=== PATIENT | female | born 1950 | race Caucasian/White ===

== ENCOUNTER 2018-01-18 15:24 | Inpatient (IN) | payer MEDICARE ==
[2018-01-18] MEDS ORDERED: ACETAMINOPHEN 325 MG TAB PO (17:00)
[2018-01-18] MEDS ORDERED: NACL 0.9% 3 ML SYG IV (17:00)
[2018-01-18] MEDS ORDERED: VANCOMYCIN IV PER PHARMACY XX (17:00)
[2018-01-18] MEDS ORDERED: ONDANSETRON 4 MG INJ IV ×2 (17:00)
[2018-01-18 17:03] LABS: ADD MAN DIFF? NO
[2018-01-18] MEDS: PIPER-TAZO 3.375 GM IV (PMX) 100 ML IVPB (17:05)
[2018-01-18] MEDS: ONDANSETRON 4 MG INJ IV (17:05)
[2018-01-18] MEDS: morphine 4 MG/ML VIAL IV (17:05)
[2018-01-18 17:06] LABS: BASOPHILS % 0.2 % (0.0-2.0); EOSINOPHILS % 0.1 % (0.0-7.0); HEMATOCRIT 39.8 % (37.0-47.0); HEMOGLOBIN 13.4 g/dl (12.0-16.0); LYMPHOCYTES # 0.8 10^3/ul (0.8-2.9); LYMPHOCYTES % 5.4 % (15.0-51.0); MEAN CORPUSCULAR HEMOGLOBIN 31.5 pg (29.0-33.0); MEAN CORPUSCULAR HGB CONC 33.7 g/dl (32.0-37.0); MEAN CORPUSCULAR VOLUME 93.4 fl (82.0-101.0); MEAN PLATELET VOLUME 12.1 fl (7.4-10.4); MONOCYTE # 0.7 10^3/ul (0.3-0.9); MONOCYTES % 4.6 % (0.0-11.0); NEUTROPHIL # 12.9 10^3/ul (1.6-7.5); NEUTROPHILS % 89.4 % (39.0-77.0); PLATELET COUNT 183 10^3/UL (140-415); RED BLOOD COUNT 4.26 10^6/ul (4.20-5.40); RED CELL DISTRIBUTION WIDTH 14.3 % (11.5-14.5)
[2018-01-18 17:06] LABS: WHITE BLOOD COUNT 14.4 10^3/ul (4.8-10.8)
[2018-01-18 17:17] LABS: INR 1.01; PROTIME 13.4 Sec (11.9-14.9)
[2018-01-18 17:26] LABS: ALANINE AMINOTRANSFERASE 19 IU/L (13-69); ALBUMIN/GLOBULIN RATIO 1.14; ALKALINE PHOSPHATASE 123 IU/L (42-121); ANION GAP 15 (8-16); ASPARTATE AMINO TRANSFERASE 20 IU/L (15-46); BILIRUBIN,INDIRECT 0.5 mg/dl (0-1.1); BILIRUBIN,TOTAL 0.5 mg/dl (0.2-1.3); BLOOD UREA NITROGEN 19 mg/dl (7-20); CALCIUM 9.2 mg/dl (8.4-10.2); CARBON DIOXIDE 28 mmol/L (21-31); CHLORIDE 106 mmol/L (97-110); CREATININE 0.92 mg/dl (0.44-1.00); GLUCOSE 102 mg/dl (70-220); POTASSIUM 4.9 mmol/L (3.5-5.1); SODIUM 144 mmol/L (135-144); TOTAL PROTEIN 7.5 g/dl (6.1-8.1)
[2018-01-18 17:27] LABS: LACTIC ACID 1.7 mmol/L (0.5-2.0)
[2018-01-18 17:43] LABS: TROPONIN-I < 0.012 ng/ml (0.00-0.12)
[2018-01-18] MEDS: VANCOMYCIN 1 GM (PMX) 250 ML IVPB (18:11)
[2018-01-18 19:16] LABS: ADD UMIC YES; UR ASCORBIC ACID 40 mg/dL (NEGATIVE); UR BACTERIA FEW /HPF (NONE SEEN); UR BILIRUBIN (Dip) NEGATIVE (NEGATIVE); UR BLOOD (Dip) NEGATIVE (NEGATIVE); UR CLARITY SLIGHTLY CLOUDY (CLEAR); UR COLOR YELLOW (YELLOW); UR GLUCOSE (Dip) NEGATIVE (NEGATIVE); UR KETONES (Dip) NEGATIVE (NEGATIVE); UR LEUKOCYTE ESTERASE (Dip) 3+ Leu/ul (NEGATIVE); UR NITRITE (Dip) POSITIVE (NEGATIVE); UR NONSQUAMOUS EPITHELIAL CELL 3 /HPF (NONE SEEN); UR RBC 11 /HPF (0-5); UR SPECIFIC GRAVITY (Dip) 1.016 (1.003-1.030); UR SQUAMOUS EPITHELIAL CELL FEW /HPF (FEW); UR TOTAL PROTEIN (Dip) NEGATIVE (NEGATIVE); UR UROBILINOGEN (Dip) NEGATIVE (NEGATIVE); UR WBC 48 /HPF (0-5)
[2018-01-18 19:45] LABS: LACTIC ACID 1.4 mmol/L (0.5-2.0)
[2018-01-18] MEDS: HYDROCODONE/APAP (5/325) TAB PO (19:48)
[2018-01-18] MEDS: BACLOFEN 10 MG TAB PO (19:48)
[2018-01-18] MEDS: morphine 2 MG INJ IV (20:58)
[2018-01-18] MEDS: BUPROPION (SR) 150 MG TAB PO (21:00)
[2018-01-18] MEDS: DIAZEPAM 5 MG TAB PO (21:00)
[2018-01-18 21:28] LABS: LACTIC ACID 1.1 mmol/L (0.5-2.0)
[2018-01-18] MEDS: VANCOMYCIN 750 MG in DEXTROSE 5% 150 ML IVPB (22:10)
[2018-01-18] MEDS: SERTRALINE 100 MG TAB PO (22:10)
[2018-01-18] MEDS: ATORVASTATIN 80 MG TAB PO (22:11)
[2018-01-19] MEDS: VANCOMYCIN 750 MG in DEXTROSE 5% 150 ML IVPB ×2 (06:18→17:30)
[2018-01-19 06:42] LABS: ADD MAN DIFF? NO
[2018-01-19] MEDS: OXYBUTYNIN 5 MG TAB PO (08:42)
[2018-01-19] MEDS: ASPIRIN 81 MG TAB PO (08:42)
[2018-01-19] MEDS: CHOLECALCIFEROL 1,000 UNIT TAB PO (08:42)
[2018-01-19] MEDS: FOLIC ACID 1 MG TAB PO (08:42)
[2018-01-19] MEDS: VITAMIN B COMPLEX/VIT C CAP PO (08:42)
[2018-01-19] MEDS: RANITIDINE 150 MG TAB PO (08:42)
[2018-01-19] MEDS: SERTRALINE 100 MG TAB PO ×2 (08:42→20:57)
[2018-01-19] MEDS: ACETAMINOPHEN 325 MG TAB PO (08:43)
[2018-01-19] MEDS: ENOXAPARIN 40 MG/0.4 ML SYG SC (09:00)
[2018-01-19] MEDS: METOPROLOL (XL) 100 MG TAB PO (09:00)
[2018-01-19 09:54] LABS: ABNORMAL IP MESSAGE 1; BASOPHILS % 0.3 % (0.0-2.0); HEMATOCRIT 37.3 % (37.0-47.0); HEMOGLOBIN 12.1 g/dl (12.0-16.0); LYMPHOCYTES # 0.6 10^3/ul (0.8-2.9); LYMPHOCYTES % 8.4 % (15.0-51.0); MEAN CORPUSCULAR HEMOGLOBIN 31.7 pg (29.0-33.0); MEAN CORPUSCULAR HGB CONC 32.4 g/dl (32.0-37.0); MEAN CORPUSCULAR VOLUME 97.6 fl (82.0-101.0); MEAN PLATELET VOLUME 12.7 fl (7.4-10.4); MONOCYTE # 0.4 10^3/ul (0.3-0.9); MONOCYTES % 5.6 % (0.0-11.0); NEUTROPHIL # 5.9 10^3/ul (1.6-7.5); NEUTROPHILS % 85.1 % (39.0-77.0); PLATELET COUNT 146 10^3/UL (140-415); RED BLOOD COUNT 3.82 10^6/ul (4.20-5.40); RED CELL DISTRIBUTION WIDTH 14.5 % (11.5-14.5)
[2018-01-19 09:54] LABS: WHITE BLOOD COUNT 6.9 10^3/ul (4.8-10.8)
[2018-01-19 09:56] LABS: POSITIVE DIFF @See below
[2018-01-19] MEDS: CEFEPIME 1GM/50 ML (PMX) 50 ML IVPB ×2 (11:51→22:03)
[2018-01-19] MEDS: OXYMETAZOLINE 0.05% 15 ML NAS SPRAY NASAL (18:26)
[2018-01-19] MEDS: ATORVASTATIN 80 MG TAB PO (20:57)
[2018-01-19] MEDS: DIAZEPAM 5 MG TAB PO (20:57)
[2018-01-19] MEDS: BUPROPION (SR) 150 MG TAB PO (20:57)
[2018-01-20 05:34] LABS: ADD MAN DIFF? NO
[2018-01-20 05:37] LABS: BASOPHILS % 0.3 % (0.0-2.0); HEMATOCRIT 31.5 % (37.0-47.0); HEMOGLOBIN 10.4 g/dl (12.0-16.0); LYMPHOCYTES # 0.9 10^3/ul (0.8-2.9); LYMPHOCYTES % 24.2 % (15.0-51.0); MEAN PLATELET VOLUME 11.5 fl (7.4-10.4); MONOCYTE # 0.4 10^3/ul (0.3-0.9); MONOCYTES % 11.8 % (0.0-11.0); NEUTROPHIL # 2.3 10^3/ul (1.6-7.5); NEUTROPHILS % 63.4 % (39.0-77.0); PLATELET COUNT 136 10^3/UL (140-415); RED BLOOD COUNT 3.35 10^6/ul (4.20-5.40); RED CELL DISTRIBUTION WIDTH 13.8 % (11.5-14.5)
[2018-01-20 05:37] LABS: WHITE BLOOD COUNT 3.6 10^3/ul (4.8-10.8)
[2018-01-20 05:59] LABS: BLOOD UREA NITROGEN 13 mg/dl (7-20)
[2018-01-20 05:59] LABS: CREATININE 0.82 mg/dl (0.44-1.00)
[2018-01-20] MEDS: OXYBUTYNIN 5 MG TAB PO (08:23)
[2018-01-20] MEDS: RANITIDINE 150 MG TAB PO (08:23)
[2018-01-20] MEDS: FOLIC ACID 1 MG TAB PO (08:24)
[2018-01-20] MEDS: ASPIRIN 81 MG TAB PO (08:24)
[2018-01-20] MEDS: VITAMIN B COMPLEX/VIT C CAP PO (08:24)
[2018-01-20] MEDS: SERTRALINE 100 MG TAB PO ×2 (08:24→20:46)
[2018-01-20] MEDS: CHOLECALCIFEROL 1,000 UNIT TAB PO (08:24)
[2018-01-20] MEDS: METOPROLOL (XL) 100 MG TAB PO (08:25)
[2018-01-20] MEDS: ENOXAPARIN 40 MG/0.4 ML SYG SC (08:27)
[2018-01-20] MEDS: CEFEPIME 1GM/50 ML (PMX) 50 ML IVPB ×2 (08:56→20:46)
[2018-01-20] MEDS: DOCUSATE SODIUM 100 MG CAP PO (18:20)
[2018-01-20] MEDS: BUPROPION (SR) 150 MG TAB PO (20:47)
[2018-01-20] MEDS: DIAZEPAM 5 MG TAB PO (20:47)
[2018-01-20] MEDS: ATORVASTATIN 80 MG TAB PO (20:47)
[2018-01-21] MEDS: DOCUSATE SODIUM 100 MG CAP PO (05:19)
[2018-01-21 06:21] LABS: ADD MAN DIFF? NO
[2018-01-21 06:42] LABS: WHITE BLOOD COUNT 3.5 10^3/ul (4.8-10.8)
[2018-01-21 06:42] LABS: BASOPHILS % 0.3 % (0.0-2.0); EOSINOPHILS # 0.1 10^3/ul (0.0-0.5); EOSINOPHILS % 1.4 % (0.0-7.0); HEMATOCRIT 34.3 % (37.0-47.0); HEMOGLOBIN 11.3 g/dl (12.0-16.0); LYMPHOCYTES # 0.9 10^3/ul (0.8-2.9); LYMPHOCYTES % 24.9 % (15.0-51.0); MEAN CORPUSCULAR HEMOGLOBIN 31.1 pg (29.0-33.0); MEAN CORPUSCULAR HGB CONC 32.9 g/dl (32.0-37.0); MEAN CORPUSCULAR VOLUME 94.5 fl (82.0-101.0); MEAN PLATELET VOLUME 12.3 fl (7.4-10.4); MONOCYTE # 0.4 10^3/ul (0.3-0.9); MONOCYTES % 11.4 % (0.0-11.0); NEUTROPHIL # 2.2 10^3/ul (1.6-7.5); NEUTROPHILS % 61.7 % (39.0-77.0); PLATELET COUNT 170 10^3/UL (140-415); RED BLOOD COUNT 3.63 10^6/ul (4.20-5.40); RED CELL DISTRIBUTION WIDTH 13.5 % (11.5-14.5)
[2018-01-21] MEDS: ASPIRIN 81 MG TAB PO (08:44)
[2018-01-21] MEDS: OXYBUTYNIN 5 MG TAB PO (08:44)
[2018-01-21] MEDS: RANITIDINE 150 MG TAB PO (08:44)
[2018-01-21] MEDS: VITAMIN B COMPLEX/VIT C CAP PO (08:44)
[2018-01-21] MEDS: CEPHALEXIN 500 MG CAP PO (08:44)
[2018-01-21] MEDS: FOLIC ACID 1 MG TAB PO (08:44)
[2018-01-21] MEDS: SERTRALINE 100 MG TAB PO (08:44)
[2018-01-21] MEDS: CHOLECALCIFEROL 1,000 UNIT TAB PO (08:44)
[2018-01-21] MEDS: METOPROLOL (XL) 100 MG TAB PO (08:45)
[2018-01-21] MEDS: ENOXAPARIN 40 MG/0.4 ML SYG SC (08:46)
[2018-01-21] MEDS: DOXYCYCLINE 100 MG TAB PO (14:03)
== END 2018-01-21 17:20 | disposition home or self-care (01) | DRG 603 ==
LOC: E/R 15:24 → PP2 16:43
DX: L03.116 Cellulitis of left lower limb (principal); N39.0 Urinary tract infection, site not specified; G35 Multiple sclerosis; L03.115 Cellulitis of right lower limb; I25.10 Atherosclerotic heart disease of native coronary artery without angina pectoris; I87.8 Other specified disorders of veins; M06.9 Rheumatoid arthritis, unspecified; B96.20 Unspecified Escherichia coli [E. coli] as the cause of diseases classified elsewhere; Z79.82 Long term (current) use of aspirin; Z95.5 Presence of coronary angioplasty implant and graft
CPT/HCPCS: 71045; 80053; 81001; 82565; 83605; 84484; 84520; 85025; 85610; 85730; 87040; 87086; 93005; 93970; 96374; 96375; 97110; 97161; 97165; 99285-25